=== PATIENT | female | born 1975 | race Caucasian/White ===

== ENCOUNTER → 2017-01-30 | Outpatient (CLI) | payer OTHER | END | disposition home or self-care (01) | LOC: PTH.S 01-14 16:00 | DX: E11.9 Type 2 diabetes mellitus without complications (principal) ==

== ENCOUNTER 2017-02-24 12:32 | Emergency (ER) | payer MEDICAID ==
--- NOTE | 2017-03-04 17:49 | ER ---
ADMIT: 02/24/2017 RM/LOC: ER [facility] MR#: [id number] [facility] [address], [place] [id number] KOMAL LOPEZ [address] [place], [place] [address] Emergency Room Report SEX: F AGE: 41 : 1975 DATE: 02/24/2017 ADDENDUM: This patient comes to the ER because she started having some vaginal bleeding today. She took a test on Monday and it was positive. She thinks that she might be a month . She really does not have any pain. On physical exam, her abdomen is soft. Her cervix is closed and she did have a mild amount of blood in her vagina. No pain in either adnexa or rebound tenderness. Her beta quant was 159. She was Rh positive. We will have her follow up with Dr. Cooley in 2 days to have her beta quant rechecked. Please see my T-sheet. NARCISO Anderson / Jaskaran Olea MD / ajayl JOB #: [id number] CC: Jaskaran Olea MD, Attending Physician Cortez Nation MD, Family Physician
== END 2017-02-24 15:40 | disposition home or self-care (01) ==
LOC: ER 12:32
DX: O20.9 Hemorrhage in early pregnancy, unspecified (principal); Z3A.00 Weeks of gestation of pregnancy not specified